=== PATIENT | female | born 1960 | race African-American/Black ===

== ENCOUNTER 2024-04-29 06:41 | Day surgery (SDC) | payer MEDICAID ==
[~2024-04-29] VITALS: Ht 154.9 cm; Wt 117.9 kg
[2024-04-29] VITALS (10 sets, daily range): BP systolic 114–164; BP diastolic 64–100; PULSE 77–91; RESP 18–24; TEMP 97.4–97.9
[2024-04-29] MEDS ORDERED: HYDR12.54 PO (08:17)
[2024-04-29] MEDS ORDERED: AMLO-258 PO (08:17)
[2024-04-29] MEDS ORDERED: ALBU18HF7 IH (08:17)
[2024-04-29] MEDS ORDERED: ASPI-1005 PO (08:17)
[2024-04-29] MEDS ORDERED: ESCI-8 PO (08:20)
[2024-04-29] MEDS ORDERED: ROSU5TAB51 PO (08:20)
[2024-04-29] MEDS ORDERED: ADV250 IH (08:20)
[2024-04-29] MEDS ORDERED: OMEP-420 PO (08:20)
[2024-04-29] MEDS ORDERED: CHOL500051 PO (08:20)
[2024-04-29] MEDS: 0.9%NACL 1000ML 1,000 ML IV ONE (08:21)
[2024-04-29] MEDS ORDERED: proPOFol 10 MG/ML 20ML VIAL IV ONE ×2 (08:57)
--- NOTE | 2024-04-29 10:37 | NUR ---
Full and complete Discharge instructions given to Patient and Friend. PIV removed with catheter tip intact. All questions answered. W/C to POV with Friend to Home. Instructed on GI procedures and precautions. Call your doctor if: Severe pain not easily relieved. Fever greater than 101 F. Difficulty breathing. Excessive dizziness. Rash breaks out. Excessive nausea or vomiting.
== END 2024-04-29 10:35 | disposition home or self-care (01) ==
LOC: ENDO 06:41 → DAH 06:41 → ENDO 10:35
PROVIDERS: ATTEND Internal Medicine
DX: D50.0 Iron deficiency anemia secondary to blood loss (chronic) (principal); K29.70 Gastritis, unspecified, without bleeding; D56.0 Alpha thalassemia; K57.30 Diverticulosis of large intestine without perforation or abscess without bleeding; J45.909 Unspecified asthma, uncomplicated; I10 Essential (primary) hypertension; G47.30 Sleep apnea, unspecified; E78.00 Pure hypercholesterolemia, unspecified; E66.9 Obesity, unspecified; Z88.8 Allergy status to other drugs, medicaments and biological substances; Z98.891 History of uterine scar from previous surgery; Z98.890 Other specified postprocedural states
CPT/HCPCS: 45378; 43239; J7030; J2704 ×2; A4615; A4215 ×2; A4223; A4222; A4221; A4663; A4606; G0121; J3490